=== PATIENT | male | born 1940 | race Caucasian/White ===

== ENCOUNTER 2021-03-06 16:11 | Observation (INO) | payer MEDICARE ==
[~2021-03-06] VITALS: Ht 177.8 cm; Wt 81.6 kg
[2021-03-06] MEDS ORDERED: ELIQUIS2.5 MG PO (20:50)
[2021-03-06] MEDS ORDERED: ALLOPURINOL100 MG PO (20:50)
[2021-03-06] MEDS ORDERED: PLAVIX75 MG PO (20:51)
[2021-03-06] MEDS ORDERED: ZYRTEC10 MG PO (20:51)
[2021-03-06] MEDS ORDERED: LEXAPRO10 MG PO (20:53)
[2021-03-06] MEDS ORDERED: VOLTAREN ARTHRI20 GM TOP (20:53)
[2021-03-06] MEDS ORDERED: FERROUS GLUCON324 M2 PO (20:54)
[2021-03-06] MEDS ORDERED: ROPINIROLE HCL3 MG PO (20:56)
[2021-03-06] MEDS ORDERED: ZOCOR 40 MG TAB40 MG PO (20:56)
[2021-03-06] MEDS ORDERED: FLOMAX0.4 MG PO (20:58)
[2021-03-07 02:53] LABS: HEMOGLOBIN 10.9 gm/dl (14.0-17.5); RED BLOOD COUNT 3.29 M/UL (4.20-5.50); WHITE BLOOD COUNT 5.8 K/UL (4.5-11.0)
[2021-03-08 06:43] LABS: HEMOGLOBIN 11.2 gm/dl (14.0-17.5); RED BLOOD COUNT 3.36 M/UL (4.20-5.50); WHITE BLOOD COUNT 4.7 K/UL (4.5-11.0)
[2021-03-08] MEDS ORDERED: ROPINIROLE HCL0.5 MG PO (12:23)
[2021-03-08] MEDS ORDERED: PROTONIX IV40 MG IVP (12:23)
[2021-03-08] MEDS ORDERED: AUGMENTIN 500-1 EACH PO (12:23)
--- NOTE | 2021-03-08 19:28 | NUR ---
REPORT CALLED TO [facility].
== END 2021-03-08 19:53 | disposition home or self-care (01) ==
LOC: PROG CARE 18:50 → CDU 18:50 → PROG CARE 21:44 → MED SURG 4 03-08 01:45
PROVIDERS: ADMIT Internal Medicine Infectious Disease
DX: I13.2 Hypertensive heart and chronic kidney disease with heart failure and with stage 5 chronic kidney disease, or end stage renal disease (principal); E11.22 Type 2 diabetes mellitus with diabetic chronic kidney disease; N18.6 End stage renal disease; I50.9 Heart failure, unspecified; I25.10 Atherosclerotic heart disease of native coronary artery without angina pectoris; E87.6 Hypokalemia; I48.0 Paroxysmal atrial fibrillation; Z99.2 Dependence on renal dialysis; Z95.1 Presence of aortocoronary bypass graft; Z87.891 Personal history of nicotine dependence; Z79.01 Long term (current) use of anticoagulants; Z79.899 Other long term (current) drug therapy
CPT/HCPCS: 96365; 96376; 36415; 71045; 80053; 82962; 83735; 85025; 90935; 94640; 94664; 94760; 96366; 97161; C9113; G0378; G0379; J1335